=== PATIENT | female | born 1955 | race Caucasian/White ===

== ENCOUNTER → 2019-12-31 12:27 | Outpatient (CLI) | payer BC, SELFPAY ==
--- NOTE | ~2019-12-31 | MM_ITS ---
EXAMINATION: MM screening deja BI w balbir HISTORY: Screening mammogram TECHNIQUE: Craniocaudal and mediolateral oblique 3-D tomosynthesis images were obtained and synthetic 2-D images were generated. CAD analysis was submitted and interpreted. COMPARISON: Comparison to multiple prior studies sequentially, with oldest reviewed study dated 09/02. BREAST PARENCHYMAL COMPOSITION: The breasts are extremely dense, which lowers the sensitivity of mamm ography. FINDINGS: There is no evidence of suspicious mass, calcification, or architectural distortion to sugg est malignancy in either breast. There has been no suspicious interval change. IMPRESSION: 1. No mammographic evidence of malignancy. 2. Recommend routine screening mammography in one year. BI-RADS Category 1: Negative Reviewed, dictated and finalized at location A.
== END ==
PROVIDERS: Visit Provider Family Medicine Adolescent Medicine
DX: Z12.31 Encounter for screening mammogram for malignant neoplasm of breast (principal)
CPT/HCPCS: 77063; 77067

== ENCOUNTER → 2021-01-14 12:27 | Outpatient (CLI) | payer BC, SELFPAY ==
--- NOTE | ~2021-01-14 | MM_ITS ---
EXAMINATION: MM screening deja BI w balbir HISTORY: Screening TECHNIQUE: Craniocaudal and mediolateral oblique 3-D tomosynthesis images were obtained and synthetic 2-D images were generated. CAD analysis was submitted and interpreted. COMPARISON: Comparison to multiple prior studies sequentially, with oldest reviewed study dated 12/2014. BREAST PARENCHYMAL COMPOSITION: The breasts are extremely dense, which lowers the sensitivity of mamm ography. FINDINGS: There is no evidence of suspicious mass, calcification, or architectural distortion to sugg est malignancy in either breast. There has been no suspicious interval change. IMPRESSION: 1. No mammographic evidence of malignancy. 2. Recommend routine screening mammography in one year. BI-RADS Category 1: Negative Reviewed, dictated and finalized at location A.
== END ==
PROVIDERS: PCP Family Medicine Adolescent Medicine; Visit Provider Obstetrics & Gynecology
DX: Z12.31 Encounter for screening mammogram for malignant neoplasm of breast (principal)
CPT/HCPCS: 77063; 77067

== ENCOUNTER → 2022-03-29 11:02 | Outpatient (CLI) | payer OTHER, SELFPAY ==
--- NOTE | ~2022-03-29 | MM_ITS ---
EXAMINATION: MM screening deja BI w balbir HISTORY: Screening TECHNIQUE: Craniocaudal and mediolateral oblique 3-D tomosynthesis images were obtained and synthetic 2-D images were generated. CAD analysis was submitted and interpreted. COMPARISON: Comparison to multiple prior studies sequentially, with oldest reviewed study dated 09/24. BREAST PARENCHYMAL COMPOSITION: The breasts are extremely dense, which lowers the sensitivity of mamm ography. FINDINGS: There is no evidence of suspicious mass, calcification, or architectural distortion to sugg est malignancy in either breast. There has been no suspicious interval change. IMPRESSION: 1. No mammographic evidence of malignancy. 2. Recommend routine screening mammography in one year. BI-RADS Category 1: Negative Reviewed, dictated and finalized at location A.
== END ==
PROVIDERS: PCP Family Medicine Adolescent Medicine; Visit Provider Obstetrics & Gynecology
DX: Z12.31 Encounter for screening mammogram for malignant neoplasm of breast (principal)
CPT/HCPCS: 77063; 77067

== ENCOUNTER 2022-08-31 00:12 | Day surgery (SDC) | payer OTHER, SELFPAY ==
[2022-08-17 14:01] VITALS: BMI 20.7
[2022-08-31 06:45] VITALS: BP 133/77; PULSE 103; RESP 18; TEMP 36.7; O2SAT 99; BMI 20.5
[2022-08-31] MEDS: LACTATED RINGERS 1,000 ML 150 ML IV CONT (07:04)
--- NOTE | 2022-08-31 07:44 | WPDANESEPPF ---
Anes - Initial Pre Proc Eval Procedure: Operation Date: 08/31/22 08:00 Proposed Procedures p Screening Colonoscopy - Xu Blanchard MD Date/Time: 08/31/22 07:44 Surgeon: Xu Blanchard MD Pre Op Diagnosis: neoplasm screening Patient Data Age: 66 Gender: F Height: 1.6 m Weight: 52.6 kg Last Vital Signs Temp 98.1 F 08/31/22 06:45 Pulse 103 H 08/31/22 06:45 Resp 18 08/31/22 06:45 BP 133/77 08/31/22 06:45 Pulse Ox 99 08/31/22 06:45 O2 Del Method Room Air 08/31/22 06:45 Allergies Allergy/AdvReac Type Severity Reaction Status Date / Time No Known Allergies Allergy Verified 08/31/22 06:53 Home Medications Medication Instructions Recorded Confirmed Type cholecalciferol (vitamin D3) 125 125 mcg PO DAILY 07/15/22 08/31/22 History mcg (5,000 unit) capsule estradiol 0.0375 mg/24 hr 1 patch transdermal 2XW 07/15/22 08/31/22 History semiweekly transdermal patch nitrofurantoin macrocrystal 25 mg 50 mg PO .PRN 07/15/22 08/31/22 History capsule trazodone 50 mg tablet 50 mg PO QHS PRN sleep #30 tabs 07/15/22 08/31/22 Rx vit 1 cap PO DAILY 07/15/22 08/31/22 History C,E,zinc,Qv-ledah-6-lutein-zeaxanthin 250 mg-2.5 mg-0.5 mg capsule Patient hx anesthesia problems: none Family hx anesthesia problems: none Results Review: All pre-operative results and documents have been reviewed as part of the pre-operative evaluation. [facility] Surgical History Surgical History (Updated 07/14/22 @ 06:17 by Danis Paris MD) History of hysterectomy with bilateral oophorectomy (2003) Family History Family History (Updated 11/27/17 @ 13:31 by DOCTOR UNKNOWN) Mother Family history of osteoporosis Social History Social History Smoking status: Never smoker Alcohol intake: current Drinks per week: 2 Substance use type: does not use Living arrangements: with family Spiritual care concerns: No Anes - Eval Final PreProcedure Day of Procedure 08/31/22 07:44 Patient weight: normal Heart: regular rate and rhythm Lungs: clear to auscultation Airway: Mallampati scale class II Neurological: alert and oriented Last oral intake: >/= 8 hours ASA classification: I Emergent: no Anesthetic plan: proceed Anesthesia type and monitoring: general GIVS and standard monitoring Results Review: All pre-operative results and documents have been reviewed as part of the pre-operative evaluation. Informed Consent: The patient's anesthetic plan and its attendant risks and benefits were discussed with the patient/family/POA. Questions were solicited and answers provided to the satisfaction of the patient/family/POA.
--- NOTE | 2022-08-31 07:59 | PM.HPGS ---
History of Present Illness History of Present Illness Consent: Risks, benefits, and alternatives have been discussed and questions answered. Patient agrees to proceed with procedure. Chief complaint: neoplasm screening Narrative: Betzaida Sheppard is a 66 year old female here for colonoscopy, last one in 2012 Review of Systems Constitutional: Constitutional: Denies headache(s) and Denies weakness Eyes: Eyes: Denies blurry vision ENT: Reports Normal hearing present, Denies headache(s) and Denies neck pain Cardiovascular: Cardiovascular: Denies chest pain and Denies dyspnea Respiratory: Respiratory: Denies dyspnea Gastrointestinal: Gastrointestinal: Reports no additional gastrointestinal complaints Genitourinary: Genitourinary: Denies dysuria Musculoskeletal: Musculoskeletal: Denies neck pain Integumentary/Breasts: Skin/Breast: Denies dry skin Neurologic: Reports Normal hearing present, Denies headache(s) and Denies weakness Psychiatric: Psychiatric: Denies anxiety Endocrine: Endocrine: Denies change in body appearance Hematologic/Lymphatic: Hematologic/Lymphatic: Denies easy bleeding Allergic/Immunologic: Allergic/Immunologic: Denies urticaria PMFSH Past Medical History Medical History (Updated 08/31/22 @ 07:59 by Xu Blanchard MD) Colon cancer screening Surgical History Surgical History (Updated 07/14/22 @ 06:17 by Danis Paris MD) History of hysterectomy with bilateral oophorectomy (2003) Family History Family History (Updated 11/27/17 @ 13:31 by DOCTOR UNKNOWN) Mother Family history of osteoporosis Social History Social History Smoking status: Never smoker Alcohol intake: current Drinks per week: 2 Substance use type: does not use Living arrangements: with family Spiritual care concerns: No Meds Home Medications and Allergies Home Medications Medication Instructions Recorded Confirmed Type cholecalciferol (vitamin D3) 125 125 mcg PO DAILY 07/15/22 08/31/22 History mcg (5,000 unit) capsule estradiol 0.0375 mg/24 hr 1 patch transdermal 2XW 07/15/22 08/31/22 History semiweekly transdermal patch nitrofurantoin macrocrystal 25 mg 50 mg PO .PRN 07/15/22 08/31/22 History capsule trazodone 50 mg tablet 50 mg PO QHS PRN sleep #30 tabs 07/15/22 08/31/22 Rx vit 1 cap PO DAILY 07/15/22 08/31/22 History C,E,zinc,Dr-olter-0-lutein-zeaxanthin 250 mg-2.5 mg-0.5 mg capsule Allergies Allergy/AdvReac Type Severity Reaction Status Date / Time No Known Allergies Allergy Verified 08/31/22 06:53 Vital Signs Vital Signs - 24 hr 08/31/22 06:45 Temperature 98.1 F Pulse Rate 103 H Respiratory Rate 18 Blood Pressure 133/77 Pulse Oximetry 99 Oxygen Delivery Room Air Exam Const: General: comfortable and no acute distress HENMT: Face/Nose/Sinus: Normal nares present Eyes: General: appearance normal, both eyes and all related structures Neck: Neck: no JVD Resp: Auscultation: clear to auscultation bilaterally Cardio: Rate: regular rate Rhythm: regular rhythm GI: Inspection: non-distended GI Palp: Yes Soft to palpation Skin: General skin exam: normal color Neuro: General: gait normal Speech: normal speech Extrem: General: normal to inspection Psych: Mental Status: mental status grossly normal Assessment and Plan Assessment and plan (1) Colon cancer screening: Code(s): Z12.11 - Encounter for screening for malignant neoplasm of colon Status: Acute Assessment and Plan: colonoscopy
[2022-08-31 08:28] VITALS: BP 110/63; PULSE 80; RESP 16; O2SAT 99
[2022-08-31 08:38] VITALS: BP 112/68; PULSE 76; RESP 24; O2SAT 100
[2022-08-31 08:48] VITALS: BP 113/72; PULSE 77; RESP 16; O2SAT 100
== END 2022-08-31 08:53 | disposition home or self-care (01) ==
PROVIDERS: PCP Family Medicine Adolescent Medicine; Visit Provider Internal Medicine Gastroenterology
PROC: 0DJD8ZZ Inspection of Lower Intestinal Tract, Via Natural or Artificial Opening Endoscopic (ICD-10-PCS; CPT 45378; principal; 2022-08-31 08:00)
DX: Z12.11 Encounter for screening for malignant neoplasm of colon (principal); D12.2 Benign neoplasm of ascending colon; D12.4 Benign neoplasm of descending colon; K57.30 Diverticulosis of large intestine without perforation or abscess without bleeding; K64.8 Other hemorrhoids
CPT/HCPCS: 45385; 88305; J2704; J7120

== ENCOUNTER → 2023-06-14 13:27 | Outpatient (CLI) | payer OTHER, SELFPAY ==
--- NOTE | ~2023-06-14 | MM_ITS ---
EXAMINATION: MM screening [facility] BI w balbir HISTORY: Screening mammogram TECHNIQUE: Craniocaudal and mediolateral oblique 3-D tomosynthesis images were obtained and synthetic 2-D images were generated. CAD analysis was submitted and interpreted. COMPARISON: 03/29/2022, 01/14/2021, 12/31/2019 BREAST PARENCHYMAL COMPOSITION: The breasts are heterogeneously dense, which may obscure small masses . FINDINGS: No suspicious mass, calcification, or architectural distortion are identified in either tatyana ast to suggest malignancy. There has been no suspicious interval change. IMPRESSION: 1. No mammographic evidence of malignancy. 2. Recommend routine screening mammography in one year. BI-RADS Category 1: Negative Reviewed, dictated and finalized at location A. LAB TECHNICIAN
== END ==
PROVIDERS: PCP Family Medicine Adolescent Medicine; Visit Provider Obstetrics & Gynecology
DX: Z12.31 Encounter for screening mammogram for malignant neoplasm of breast (principal)
CPT/HCPCS: 77063; 77067

== ENCOUNTER 2024-06-17 13:13 | Outpatient (CLI) | payer OTHER, SELFPAY ==
--- NOTE | ~2024-06-17 | MM_ITS ---
EXAMINATION: MM screening deja BI w balbir HISTORY: Screening TECHNIQUE: Craniocaudal and mediolateral oblique 3-D tomosynthesis images were obtained and synthetic 2-D images were generated. CAD analysis was submitted and interpreted. COMPARISON: Comparison to multiple prior studies sequentially, with oldest reviewed study dated 10/24. BREAST PARENCHYMAL COMPOSITION: Dense: The breasts are heterogeneously dense, which may obscure small masses FINDINGS: There is no evidence of suspicious mass, calcification, or architectural distortion to sugg est malignancy in either breast. There has been no suspicious interval change. IMPRESSION: 1. No mammographic evidence of malignancy. 2. Recommend routine screening mammography in one year. BI-RADS Category 1: Negative Reviewed, dictated and finalized at location B. LE VALVE OPERATOR
== END 2024-06-17 13:14 | disposition home or self-care (01) ==
PROVIDERS: PCP Family Medicine Adolescent Medicine; Visit Provider Obstetrics & Gynecology
DX: Z12.31 Encounter for screening mammogram for malignant neoplasm of breast (principal)
CPT/HCPCS: 77063; 77067

== ENCOUNTER 2024-09-09 00:35 | Day surgery (SDC) | payer OTHER, SELFPAY ==
[2024-08-28 14:55] VITALS: BMI 21.4
--- OUTSIDE RECORDS SUMMARY | 2024-09-09 00:37 | XMS_ITS | Encounter Summary ---
Author Organization [facility] Address [address] [place] [address] Care Team Providers Care Flying Teacher Name Role Phone Danis Paris MD Primary Care Provider [phone]- [phone] Encounter Details Date Type Department Care Team (Late st Contact Info) Description 07/04/2003 Outpatient Historical [facility] Support Serv. (Adt Cardiology-[facility]) [address] 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 Gender Identity Not on file Sexual Orientation Not on file documented as of this encounter Plan of Treatment Upcoming Encounters Date Type Department Care Team (Late st Contact Info) Description 01/21/2025 10:15 AM CDT Office Visit [facility] ELECTRICIAN TECHNICIAN - Medical [facility] [address] [place] [address] Joseph Stein MD [address] [facility] [address] [place] [address] 01/21/2025 11:20 AM CDT Appointment [facility] [address] [place] [address] Gabriel Sexton MD [address] [facility] [address] [address] documented as of this encounter Visit Diagnoses Not on filedocumented in this encounter Care Teams Flying Teacher Relationship Specialty Start Date End Date Danis Paris MD PCP - General Family Practice 07/22/19 documented as of this encounter
--- OUTSIDE RECORDS SUMMARY | 2024-09-09 00:37 | XMS_ITS | Encounter Summary ---
Author Organization [facility] Address [address] [address] Care Team Providers Care Button Clamper Name Role Phone Danis Paris MD Primary Care Provider + Encounter Details Date Type Department Care Team (Late st Contact Info) Description 12/06/2017 Lab Requisition [facility] [address] [facility] [place] [phone] Jett Zamudio MD [address] [place] [address] Social History Tobacco Use Types Packs/Day Years Used Date Smoking Tobacco: Never Assessed Sex and Gender Information Value Date Recorded Sex Assigned at Not on file Gender Identity Not on file Sexual Orientation Not on file documented as of this encounter Plan of Treatment Not on file documented as of this encounter Procedures Procedure Name Priority Date/Time Associated Diagnosis Comments DERMATOPATHOLOGY Routine 12/05/2017 12:0 0 AM CDT documented in this encounter Results * DERMATOPATHOLOGY (12/05/2017 12:00 AM CDT) Case Report Dermatopathology Report Case: [id number] Authorizing Provider: Jett Zamudio MD Collected: 12/05/2017 12:00 AM Pathologist: Belinda Armstrong MD Received: 12/06/2017 12:11 PM Specimen: Skin, left nasal tip 8 4:27 PM CDT DERMATOPATHOLOGY LABORATORY Final Diagnosis Specimen A. 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 8 4:27 PM CDT DERMATOPATHOLOGY LABORATORY Gross Description Specimen A: Received is one formalin filled container labeled with the patient's name and designated left nasal tip. The specimen consists of a shave biopsy measuring [id number]. Jar 0. 4:27 PM CDT DERMATOPATHOLOGY LABORATORY Microscopic Description Specimen A. SKIN, left nasal tip: The epidermis shows parakeratosis, full thickness disorderly maturation of keratinocytes, mitoses at different levels, and dyskeratotic cells. Additional deeper sections were obtained and reviewed. 4:27 PM T DERMATOPATHOLOGY LABORATORY Disclaimer An external and internal positive and negative controls are appropriate for the histochemical, immunohistochemical and immunofluorescence stain(s) in this case (if any), except where stated explicitly. The performance characteristics of the stain(s) cited in this report were developed and its performance characteristic determined by the Dermatopathology Laboratory at [facility]. These tests need not be, and therefore are not, approved by the [place] Food and Drug Administration. The tests are used for clinical purposes. Billing Codes Specimen Charges Stain Charges 57683 1 8 4:27 PM CDT DERMATOPATHOLOGY LABORATORY Embedded Images 4:27 PM CDT DERMATOPATHOLOGY LABORATORY Pathology/Cytolog y TISSUE SPECIMEN FROM SKIN / Unknown 12/05/2017 12/06/2017 12:11 PM CDT Jett Zamudio MD LAB - PATHOLOGY/CYTO LOGY ORDERABLES DERMATOPATHOLOGY LABORATORY [facility] - Department of Dermatology [address] [place] [address], 5th [place] [address], [facility] [phone] documented in this encounter Visit Diagnoses Not on filedocumented in this encounter Care Teams Button Clamper Relationship Specialty Start Date End Date Danis Paris MD [address] [address] PCP - General 09/23/22 documented as of this encounter
--- OUTSIDE RECORDS SUMMARY | 2024-09-09 00:37 | XMS_ITS | Encounter Summary ---
Author Organization [facility] Address 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 Gender Identity Not on file Sexual Orientation Not on file documented as of this encounter Plan of Treatment Upcoming Encounters Date Type Department Care Team (Late st Contact Info) Description 01/21/2025 10:15 AM CDT Office Visit [facility] DIRECTOR OF DIVERSITY AND INCLUSION - Medical [address] [address] Joseph Stein MD [address] [address] 01/21/2025 11:20 AM CDT Appointment [facility] [address] [place] [address] Gabriel Sexton MD [address] [address] documented as of this encounter Visit Diagnoses Diagnosis Leiomyoma of uterus, unspecified- Primary documented in this encounter Care Teams Cook Roast Relationship Specialty Start Date End Date Danis Paris MD PCP - General Family Practice 07/22/19 documented as of this encounter
--- OUTSIDE RECORDS SUMMARY | 2024-09-09 00:37 | XMS_ITS | Encounter Summary ---
Author Organization [facility] Address [address] [facility] [place] [address] Care Team Providers Care Industrial Maintenance Technician Name Role Phone Danis Paris MD Primary Care Provider + Encounter Details Date Type Department Care Team (Late st Contact Info) Description 02/19/2020 Lab Requisition [facility] D[facility] Lab [address] [place] [phone] Jett Zamudio MD [address] [place] [address] Social History Tobacco Use Types [...] Priority Date/Time Associated Diagnosis Comments DERMATOPATHOLOGY Routine 02/18/2020 12:0 0 AM CDT documented in this encounter Results * DERMATOPATHOLOGY (02/18/2020 12:00 AM CDT) Case Report Dermatopathology Report Case: [id number] Authorizing Provider: Jett Zamudio MD Collected: 02/18/2020 12:00 AM Ordering Location: [facility] Received: 02/19/2020 12:29 PM Pathologist: Brook Mahoney MD Specimens: A) - Skin, right ala B) - Skin, right above patella on thigh 0 3:31 PM CDT DERMATOPATHOLOGY LABORATORY Final Diagnosis Specimen A. SKIN, right ala: BASAL CELL CARCINOMA, NODULAR TYPE (C44.311) Specimen B. SKIN, right above patella on thigh: BENIGN VERRUCOUS KERATOSIS (L82.1) (see microscopic description) 0 3:31 PM CDT DERMATOPATHOLOGY LABORATORY Clinical History A: R/O BCC. B: R/O BCC, ISK. 0 3:31 PM CDT DERMATOPATHOLOGY LABORATORY Gross Description Specimen A: Received is one formalin filled container labeled with the patient's name and designated right ala. The specimen consists of a shave biopsy measuring [id number]. Jar 0. Specimen B: Received is one formalin filled container labeled with the patient's name and designated right above patella on thigh. The specimen consists of a shave biopsy measuring [id number]. Jar 0. 0 3:31 PM CDT DERMATOPATHOLOGY LABORATORY Microscopic Description Specimen A. SKIN, right ala: Within the dermis there are aggregates of basaloid cells with a high nuclear to cytoplasmic ratio and peripheral palisading. Specimen B. SKIN, right above patella on thigh: Sections show hyperkeratosis, papillomatosis, hypergranulosis, and acanthosis. These histological findings can be seen in a verruca vulgaris or a seborrheic keratosis. There is no evidence of epithelial dysplasia or malignancy in multiple deeper sections examined. 0 3:31 PM CDT DERMATOPATHOLOGY LABORATORY Disclaimer An external and internal positive and negative controls are appropriate for the histochemical, immunohistochemical and immunofluorescence stain(s) in this case (if any), except where stated explicitly. The performance characteristics of the stain(s) cited in this report were developed and its performance characteristic determined by the Dermatopathology Laboratory at [facility], directed by Dr. Eloy Armstrong. These tests need not be, and therefore are not, approved by the [place] Food and Drug Administration. The tests are used for clinical purposes. Billing Codes Specimen Charges Stain Charges 29927 23675 1 1 0 3:31 PM CDT DERMATOPATHOLOGY LABORATORY Embedded Images 0 3:31 PM CDT DERMATOPATHOLOGY LABORATORY Pathology/Cytology TISSUE SPECIMEN FROM SKIN / Unknown 02/18/2020 02/19/2020 12:29 PM CDT Miscellaneous samples (specimen) TISSUE SPECIMEN FROM SKIN / Unknown 02/18/2020 02/19/2020 12:29 PM CDT Jett Zamudio MD LAB - PATHOLOGY/CYTO LOGY ORDERABLES DERMATOPATHOLOGY LABORATORY [facility] - Department of Dermatology [facility] Medicine [address] [place] [address], [address] [phone] documented in this encounter Visit Diagnoses Not on filedocumented in this encounter Care Teams Industrial Maintenance Technician Relationship Specialty Start Date End Date Danis Paris MD [address] [address] PCP - General 09/23/22 documented as of this encounter
--- OUTSIDE RECORDS SUMMARY | 2024-09-09 00:37 | XMS_ITS | Encounter Summary ---
Author Organization [facility] Address [address] [place] [address] Care Team Providers Care Pumping Plant Operator Name Role Phone Danis Paris MD Primary Care Provider + Encounter Details Date Type Department Care Team (Late st Contact Info) Description 05/19/2021 Lab Requisition [facility] [address] [place] [id number] Jett Zamudio MD [address] [place] [address] Social History Tobacco Use Types [...] Priority Date/Time Associated Diagnosis Comments DERMATOPATHOLOGY Routine 05/18/2021 12:0 0 AM MANIPULATOR OPERATOR documented in this encounter Results * DERMATOPATHOLOGY (05/18/2021 12:00 AM MANIPULATOR OPERATOR) Case Report Dermatopathology Report Case: [id number] Authorizing Provider: Jett Zamudio MD Collected: 05/18/2021 12:00 AM Ordering Location: [facility] Received: 05/19/2021 01:50 PM Pathologist: Brook Mahoney MD Specimen: Skin, right tip nose 5:28 PM MANIPULATOR OPERATOR DERMATOPATHOLOGY LABORATORY Final Diagnosis Specimen A. SKIN, right tip nose: SEBORRHEIC KERATOSIS, IRRITATED AND INFLAMED (L82.0) COMEDONE (L70.8) 5:28 PM [facility] DERMAT[facility]ORAT[facility] Clinical History R/O BCC. 5:28 PM [facility] Gross Description Specimen A: Received is one formalin filled container labeled with the patient's name and designated right tip nose. The specimen consists of a shave biopsy measuring [id number]. Jar 0. 5:28 PM [facility] DERMATOPATHOLOGY [facility]ORATORY Microscopic Description Specimen A. SKIN, right tip nose: Sections show acanthosis, papillomatosis, hyperkeratosis, and squamous eddies. There is a lymphohistiocytic infiltrate within the papillary dermis. There is a dilated follicular infundibulum with keratinous plug. 5:28 PM [facility] DERMATOPATHOLOGY [facility]ORATORY Disclaimer An external and internal positive and negative controls are appropriate for the histochemical, immunohistochemical and immunofluorescence stain(s) in this case (if any), except where stated explicitly. The performance characteristics of the stain(s) cited in this report were developed and its performance characteristic determined by the Dermatopathology Laboratory at [facility], directed by Dr. Eloy Armstrong. These tests need not be, and therefore are not, approved by the [place] Food and Drug Administration. The tests are used for clinical purposes. Billing Codes Specimen Charges Stain Charges 59869 1 5:28 PM MANIPULATOR OPERATOR DERMATOPATHOLOGY LABORATORY Embedded Images 5:28 PM [facility] DERMAT[facility]ORY Pathology/Cytolog y TISSUE SPECIMEN FROM SKIN / Unknown 05/18/2021 05/19/2021 1:50 PM MANIPULATOR OPERATOR Jett Zamudio MD LAB - PATHOLOGY/CYTO LOGY ORDERABLES DERMATOPATHOLOGY LABORATORY [facility] - Department of Dermatology [address], [address] [phone] documented in this encounter Visit Diagnoses Not on filedocumented in this encounter Care Teams Pumping Plant Operator Relationship Specialty Start Date End Date Danis Paris MD [address] [place] [id number] PCP - General 09/23/22 documented as of this encounter
--- OUTSIDE RECORDS SUMMARY | 2024-09-09 00:37 | XMS_ITS | Clinical Summary ---
Author Organization [facility] Address [address] [place] [address] Care Team Providers Care Statuary Painter Name Role Phone Danis Paris MD Primary Care Provider + Source Comments [facility],non-owned Affiliates and Associated Physician Practices is amultiple site organization consisting of ambulatory clinics and hospital sitesin [place], [place], [place] and [place]. This disclosure is being madepursuant to the Care Everywhere program and may not contain all information available regarding this patient. Last updated 18.[facility] Social History Tobacco Use Types Packs/Day Years Used Date Smoking Tobacco: Never Assessed Sex and Gender Information Value Date Recorded Sex Assigned at Not on file Gender Identity Not on file Sexual Orientation Not on file Plan of Treatment Health Maintenance Due Date Last Done Comments BONE DENSITY TESTING 1955 COLOGUARD (AGES 45-75) - COL ON CA SCREENING 1956 COLON MONITORING 1956 COLONOSCOPY - COLON CA SCREENING 1956 CT COLONOGRAPHY - COLON CA SCREENING 1956 Colorectal Cancer Screening 1956 FIT - COLON CA SCREENING 1956 FLEX SIG - COLON CA SCREENING 1956 LIPID TESTING 1956 MAMMOGRAM 1956 MEDICARE AWV 12 MONTHS 1956 HEPATITIS C SCREENING 12/08/1974 DTAP/TDAP/TD VACCINES (1 - Tdap) 12/13/1975 PNEUMOCOCCAL VACCINE 50+ (1 of 1 - PCV) 2006 ZOSTER VACCINE (1 of 2) 2006 COVID-19 VACCINE (1 - 2023-2 5 season) 2024 INFLUENZA VACCINE (#1) 2024 DEPRESSION SCREENING 06/12/2024 MEDICARE AWV CALENDAR YEAR 2024 Respiratory Syncytial Virus (RSV) Vaccine Pt: or over 60 yrs (1 - 1-dose 75+ series) 12/13/2031 HEPATITIS B VACCINE Aged Out No longe r eligible based on patient's age to complete this topic HIB VACCINE Aged Out No longer eligi ble based on patient's age to complete this topic HPV VACCINE Aged Out No longer eligi ble based on patient's age to complete this topic MENINGOCOCCAL (Group B) VACC INE SHARED DECISION-MAKING Aged Out No longer eligibl e based on patient's age to complete this topic MENINGOCOCCAL GROUPS A/C/Y/W VACCINE Aged Out No longer eligible b ased on patient's age to complete this topic Care Teams Statuary Painter Relationship Specialty Start Date End Date Danis Paris MD [address] [place] [id number] PCP - General 09/23/22
--- OUTSIDE RECORDS SUMMARY | 2024-09-09 00:38 | XMS_ITS | Clinical Summary ---
Author Organization [facility] Address [address] [place] [address] Phone Care Team Providers Care Asbestos Siding Installer Name Role Phone Danis Paris MD Primary Care Provider [phone] Allergies No known active allergies Medications Denta 5000 Plus 1.1 % Cream USE TOOTHPASTE AT BEDTIME. EXPECTORATE EXCESS BUT DO NOT RINSE AFTER USE 0 Active trazodone HCl (TRAZODONE ORAL) Take by mouth. Active estradioL (VIVELLE-DOT) 0.0375 mg/24 hr patch Change patch twice weekly. 24 Patch 3 4 Active nitrofurantoin macrocrystaL (MACRODANTIN) 50 mg capsule TAKE 1 CAPSULE BY MOUTH AFTER INTERCOURSE NEEDED 30 Capsule 3 4 Active alendronate (FOSAMAX) 70 mg tablet Take 1 Tablet (70 mg) by mouth every 7 days. empty stomach before other meds,with 8oz of water, stay upright 30 min 13 Tablet 3 4 Active LORazepam (ATIVAN) 1 mg tablet take 1 tablet by mouth every day at bedtime as needed for sleep 5 Active Active Problems Problem Noted Date Diagnosed Date Age-related osteoporosis wit hout current pathological fracture 07/23/2024 Encounters Date Type Department Care Team Description 08/28/2024 External Device Data STL ABSTRACTION Provider, Abstract 08/21/2024 External Device Data [facility] ABSTRACTION Provider, Abstract 08/20/2024 External Device Data [facility] ABSTRACTION Provider, Abstract 08/17/2024 External Device Data [facility] ABSTRACTION Provider, Abstract 08/17/2024 External Device Data ST[facility] ABSTRACTION Provider, Abstract 08/14/2024 External Device Data ST[facility] ABSTRACTION Provider, Abstract 08/14/2024 External Device Data ST[facility] ABSTRACTION Provider, Abstract 07/31/2024 External Device Data STL ABSTRACTION Provider, Abstract 07/23/2024 10:30 AM CRIME LAB ANALYST Office Visit [facility] CONTROL CLERK REPAIRS - [facility] [address] [address] Gabriel Sexton MD Age-related osteoporosis without current pathological fracture (Primary Dx) 07/04/2024 External Device Data STL ABSTRACTION Provider, Abstract 06/25/2024 External Device Data STL ABSTRACTION Provider, Abstract 06/18/[address] [facility] CONTROL CLERK REPAIRS [facility] [address] [place], [place] [address] [address] [address] Gabriel Sexton MD Breast cancer screening by mammogram from Last 3 Months Immunizations Immunization Administration Dates Next Due Influenza Seasonal Unspecified Formulation IM Family History Medical History Relation Name Comments Cancer Brother 1 Mikal Skin Hypertension Brother 1 Mikal Prostate Cancer Brother 1 Mikal Hypertension Brother 2 Brian maker brittney susan Hypertension Father Panchito Osteoporosis Mother Kristen Arthritis-osteo Other Family Hx. Diabetes Other Family Hx. Hypertension Other Family Hx. Osteoporosis Other Family Hx. Skin Cancer Other Family Hx. Cancer Sister 1 Maria Alejandra Skin Cancer Sister 2 Myra Skin Relation Name Status Comments Brother 1 Mikal Brother 2 Brian Father Panchito Mother Kristen Other Family Hx. Sister 1 Maria Alejandra Sister 2 Myra Social History Tobacco Use Types Packs/Day Years Used Date Smoking Tobacco: Never Passive Smoke Exposure: Never Smokeless Tobacco: Never Alcohol Use Standard Drinks/Week Comments Yes 4 (1 standard drink = 0.6 oz pur e alcohol) 3-4 x week Comments No Sex and Gender Information Value Date Recorded Sex Assigned at Not on file Legal Sex Female 3:08 AM CRIME LAB ANALYST Gender Identity Not on file Sexual Orientation Not on file Last Filed Vital Signs Vital Sign Reading Time Taken Comments Blood Pressure 126/80 07/23/2024 10:06 AM CRIME LAB ANALYST Pulse - - Temperature - - Respiratory Rate - - Oxygen Saturation - - Inhaled Oxygen Concentration - - Weight 56.2 kg (124 lb) 07/23/2024 10:06 AM CRIME LAB ANALYST Height 159.4 cm (5' 2.75 ) 07/23/2024 10:06 AM Juan C DAVIDSON Body Mass Index 22.14 07/23/2024 10:06 AM CRIME LAB ANALYST Plan of Treatment Upcoming Encounters Date Type Department Care Team (Late st Contact Info) Description 01/21/2025 10:15 AM CDT Office Visit [facility] CONTROL CLERK REPAIRS - [facility] [place] [facility] [address] [address] Joseph Stein MD [address] [place] [address] [place] [phone] 01/21/2025 11:20 AM CDT Appointment [facility] [address] [place] [phone] Gabriel Sexton MD [address] [place], [place] [address] [place] [address] Health Maintenance Due Date Last Done Comments DTAP/TDAP/TD VACCINES (1 - Tdap) 12/13/1975 COLORECTAL SCREENING 2001 FIT-DNA Q 3 years 2001 Flex Sig/CT Colonography Q 5 years 2001 PNEUMOCOCCAL VACCINE 50+ YEA RS (1 of 1 - PCV) 2006 ZOSTER VACCINE (1 of 2) 2006 Colorectal Cancer Screening 11/25/2020 FIT/FOBT Q 1 year 11/25/2020 11/26/2019 [place] ([place] Preventative Visit/Annual Wellness Visit 06/12/2024 01/19/2024, 01/12/2023, 01/04/2022, Additional history exists BREAST CANCER SCREENING 06/17/2025 06/17/19 25, 06/14/2023, 03/29/2022, Additional history exists RSV VACCINE (60+ or ) (1 - 1-dose 75+ series) 12/13/2031 OSTEOPOROSIS SCREENING Completed 4, 01/04/2022, 11/26/2019 INFLUENZA VACCINE Completed 05/12/2024 Procedures Procedure Name Priority Date/Time Associated Diagnosis Comments MAMMO 3D JUANA SCREEN BILAT W OR WO CAD Routine 06/17/2024 Breast cancer screening by mammogram XR DEXA BONE DENSITY AXIAL 1 OR MORE SITES Routine 01/19/2024 11:23 AM CDT Other specified disorders of bone density and structure, other site POC OCCULT BLOOD, IMMUNO, QUAL, STOOL Routine 11/26/2019 1:56 PM CDT Screening for malignant neoplasm of the rectum from Last 3 Months or Most Recently Relevant to Health Maintenance Results * MAMMO 3D JUANA SCREEN BILAT W OR WO CAD (06/17/2024) Anatomical Region Laterality Modality Breast Bilateral Mammography us Gabriel Sexton MD MAMMO ORDERABLES Final Resul t * XR DEXA BONE DENSITY AXIAL 1 OR MORE SITES (01/19/2024 11:23 AM CDT) Anatomical Region Laterality Modality Computed Radiogr aphy Impressions 01/19/2024 11:48 AM CDT : Patient's worst T-score is -2.1. However, her FRAX calculation is positive with an increased risk for hip fracture. Recommend she have labs and a consult to discuss osteoporosis and its treatment. us Gabriel Sexton MD DIAGNOSTIC IMAGING ORDERABLE S Final Result * POC OCCULT BLOOD, IMMUNO, QUAL, STOOL (11/26/2019 1:56 PM CDT) OCCULT BLOOD, IMMUNOASSAY POC Negative Negative [facility] CONTROL CLERK REPAIRS [address] INTERNAL KIT QC Pass Pass [facility] CONTROL CLERK REPAIRS [address] KIT LOT NUMBER POC [id number] [facility] CONTROL CLERK REPAIRS [address] KIT EXPIRATION DATE POC 111,121 [facility] CONTROL CLERK REPAIRS [address] Stool STOOL SPECIMEN / Unknown 11/26/2019 1:56 PM CDT us Gabriel Sexton MD POINT OF CARE TESTING Final Result [facility] CONTR[facility] CLERK REPAIRS GU[address]LE [address] [facility]# [id number] [address] [facility] [address] [place] [address] from Last 3 Months or Most Recently Relevant to Health Maintenance Insurance [facility] [place] Address: [place] [address] Care Teams Asbestos Siding Installer Relationship Specialty Start Date End Date Danis Paris MD PCP - General Family Practice 07/22/19
--- OUTSIDE RECORDS SUMMARY | 2024-09-09 00:38 | XMS_ITS | Continuity of Care Document ---
Author Organization [facility] Address [address] [place] [address] [address] [address] [place] [address] Phone Care Team Providers Care Park Guard Name Role Phone Genny Robles Unavailable Unavailable Advance Directives Directive Yes / No Effective Date File Name No Information Encounters Encounter Description Practice Location Reason(s) For Visit Diagnoses Date Provider Providers Copied on Encounter [facility], [address], [place], [place], [id number], [place] tel:[phone] [facility] No Information Apr-0 8-200 5 Margaret Royal. [address] , [address], [place], [address], [place]. tel:[phone] Family History Family Member Type Diagnosis Age At Onset No Information Payers Payer name Insurance type Covered democrat ID Authoriza tion(s) [facility] Commercial CI [id number] Social History Type Description Quantity Date Captured Comments Sex Female Smoking Status No Information Chief Complaint And Reason For Visit No Information Reason For Referral Reason For Referral No Information History Of Present Illness Encounter Date Complaint History Of Prese nt Illness No Information Functional Status Date Functional Assessmen t No Information Instructions Date Instruction Additional Infor mation No Information Assessments Type Assessment Date No Information Patient Care Teams Name Effective Dates (start - stop) Status Members No Information
[2024-09-09 11:17] VITALS: BP 150/97; PULSE 93; RESP 20; TEMP 36.3; O2SAT 99; BMI 21.0
[2024-09-09] MEDS: LACTATED RINGERS 1,000 ML 150 ML IV CONT ×2 (11:25→13:18)
--- NOTE | 2024-09-09 11:34 | WPDANESEPPF ---
Anes - Initial Pre Proc Eval Procedure: Operation Date: 09/09/24 12:30 Proposed Procedures p Screening Colonoscopy - Xu Blanchard MD Date/Time: 09/09/24 11:34 Surgeon: Xu Blanchard MD Pre Op Diagnosis: personal hx colon polyps Patient Data Age: 68 Gender: F Height: 1.6 m Weight: 54 kg Last Vital Signs Temp 97.3 F L 09/09/24 11:17 Pulse 93 09/09/24 11:17 Resp 20 09/09/24 11:17 BP 150/97 H 09/09/24 11:17 Pulse Ox 99 09/09/24 11:17 O2 Del Method Room Air 09/09/24 11:17 Allergies Allergy/AdvReac Type Severity Reaction Status Date / Time No Known Allergies Allergy Verified 09/09/24 11:16 Home Medications ?Medication ?Instructions ?Recorded ?Confirmed ?Type cholecalciferol (vitamin D3) 125 125 mcg PO DAILY 07/15/22 09/09/24 History mcg (5,000 unit) capsule nitrofurantoin macrocrystal 25 mg 50 mg PO .PRN 07/15/22 08/28/24 History capsule triamcinolone acetonide 0.1 % 1 applic topical BID #80 grams 09/26/22 09/09/24 Rx topical cream lorazepam 1 mg tablet 1 mg PO QHS PRN sleep #30 tabs 03/25/24 08/28/24 Rx alendronate 70 mg tablet mg PO WEEKLY 08/28/24 History Patient hx anesthesia problems: none Family hx anesthesia problems: none Results Review: All pre-operative results and documents have been reviewed as part of the pre-operative evaluation. [facility] Past Medical History Medical History Colon cancer screening Surgical History Surgical History History of hysterectomy with bilateral oophorectomy (2003) Family History Family History Mother Family history of osteoporosis Social History Social History Smoking status: Never smoker Alcohol intake: current Drinks per week: 7 Substance use type: does not use Living arrangements: with family Spiritual care concerns: No Anes - Eval Final PreProcedure Day of Procedure 09/09/24 11:34 Patient weight: normal Lungs: normal air movement Airway: Mallampati scale class II Neurological: alert and oriented Last oral intake: >/= 8 hours ASA classification: I Emergent: no Anesthetic plan: proceed Anesthesia type and monitoring: general GIVS and standard monitoring Results Review: All pre-operative results and documents have been reviewed as part of the pre-operative evaluation. Active w walking, golf, no cp or sob. Informed Consent: The patient's anesthetic plan and its attendant risks and benefits were discussed with the patient/family/POA. Questions were solicited and answers provided to the satisfaction of the patient/family/POA.
--- NOTE | 2024-09-09 12:17 | PM.HPGS ---
History of Present Illness History of Present Illness Consent: Risks, benefits, and alternatives have been discussed and questions answered. Patient agrees to proceed with procedure. Chief complaint: personal hx colon polyps Narrative: Betzaida Sheppard is a 68 year old female with colon polyp in 2022 Review of Systems Review of Systems: All systems reviewed & are unremarkable except as noted in HPI and below PMFSH Past Medical History Medical History (Updated 09/09/24 @ 12:18 by Xu Blanchard MD) Adenomatous colon polyp Colon cancer screening Surgical History Surgical History History of hysterectomy with bilateral oophorectomy (2003) Family History Family History Mother Family history of osteoporosis Social History Social History Smoking status: Never smoker Alcohol intake: current Drinks per week: 7 Substance use type: does not use Living arrangements: with family Spiritual care concerns: No Meds Home Medications and Allergies Home Medications ?Medication ?Instructions ?Recorded ?Confirmed ?Type cholecalciferol (vitamin D3) 125 125 mcg PO DAILY 07/15/22 09/09/24 History mcg (5,000 unit) capsule nitrofurantoin macrocrystal 25 mg 50 mg PO .PRN 07/15/22 08/28/24 History capsule triamcinolone acetonide 0.1 % 1 applic topical BID #80 grams 09/26/22 09/09/24 Rx topical cream lorazepam 1 mg tablet 1 mg PO QHS PRN sleep #30 tabs 03/25/24 08/28/24 Rx alendronate 70 mg tablet mg PO WEEKLY 08/28/24 History Allergies Allergy/AdvReac Type Severity Reaction Status Date / Time No Known Allergies Allergy Verified 09/09/24 11:16 Vital Signs Vital Signs - 24 hr 09/09/24 11:17 Temperature 97.3 F L Pulse Rate 93 Respiratory Rate 20 Blood Pressure 150/97 H Pulse Oximetry 99 Oxygen Delivery Room Air Exam Const: General: comfortable and no acute distress HENMT: Face/Nose/Sinus: Normal nares present Eyes: General: appearance normal, both eyes and all related structures Neck: Neck: no JVD Resp: Auscultation: clear to auscultation bilaterally Cardio: Rate: regular rate Rhythm: regular rhythm GI: Inspection: non-distended GI Palp: Yes Soft to palpation Skin: General skin exam: normal color Neuro: Speech: normal speech Extrem: General: normal to inspection Psych: Mental Status: mental status grossly normal Assessment and Plan Assessment and plan (1) Adenomatous colon polyp: Code(s): D12.6 - Benign neoplasm of colon, unspecified Status: Acute Assessment and Plan: colonoscopy
[2024-09-09 13:23] VITALS: BP 107/63; PULSE 65; RESP 15; O2SAT 100
[2024-09-09 13:33] VITALS: BP 114/52; PULSE 65; RESP 17; O2SAT 100
[2024-09-09 13:43] VITALS: BP 105/67; PULSE 60; RESP 15; O2SAT 100
== END 2024-09-09 14:10 | disposition home or self-care (01) ==
PROVIDERS: PCP Family Medicine Adolescent Medicine; Referring Provider Family Medicine Adolescent Medicine; Visit Provider Internal Medicine Gastroenterology
PROC: 0DJD8ZZ Inspection of Lower Intestinal Tract, Via Natural or Artificial Opening Endoscopic (ICD-10-PCS; CPT 45378; principal; 2024-09-09 12:30)
DX: Z12.11 Encounter for screening for malignant neoplasm of colon (principal); D12.4 Benign neoplasm of descending colon; K63.5 Polyp of colon; K64.8 Other hemorrhoids; Z79.83 Long term (current) use of bisphosphonates; Z98.890 Other specified postprocedural states
CPT/HCPCS: 45390; 88305; J2003; J2704; J7120

== ENCOUNTER 2025-03-17 00:11 | Day surgery (SDC) | payer OTHER, SELFPAY ==
[2025-03-03 12:48] VITALS: BMI 21.9
[2025-03-17 06:57] VITALS: BP 133/76; PULSE 85; RESP 20; TEMP 36.6; O2SAT 98; BMI 21.0
[2025-03-17] MEDS: LACTATED RINGERS 1,000 ML 150 ML IV CONT (07:05)
--- NOTE | 2025-03-17 07:27 | WPDANESEPPF ---
Anes - Initial Pre Proc Eval Procedure: Operation Date: 03/17/25 08:00 Proposed Procedures p Screening Colonoscopy - Xu Blanchard MD Date/Time: 03/17/25 07:27 Surgeon: Xu Blanchard MD Pre Op Diagnosis: Personal history of colon polyps, unspecified Patient Data Age: 69 Gender: F Height: 1.6 m Weight: 54 kg Last Vital Signs Temp 36.6 C 03/17/25 06:57 Pulse 85 03/17/25 06:57 Resp 20 03/17/25 06:57 BP 133/76 03/17/25 06:57 Pulse Ox 98 03/17/25 06:57 O2 Del Method Room Air 03/17/25 06:57 Allergies Allergy/AdvReac Type Severity Reaction Status Date / Time No Known Allergies Allergy Verified 03/17/25 06:54 Home Medications ?Medication ?Instructions ?Recorded ?Confirmed ?Type cholecalciferol (vitamin D3) 125 125 mcg PO DAILY 07/15/22 03/17/25 History mcg (5,000 unit) capsule nitrofurantoin macrocrystal 25 mg 50 mg PO .PRN 07/15/22 03/03/25 History capsule triamcinolone acetonide 0.1 % 1 applic topical BID #80 grams 09/26/22 03/17/25 Rx topical cream alendronate 70 mg tablet 70 mg PO WEEKLY 08/28/24 03/03/25 History lorazepam 1 mg tablet 1.5 mg (1.5 x 1 mg) PO QHS PRN 03/02/25 03/17/25 Rx sleep #45 tabs Patient hx anesthesia problems: none Family hx anesthesia problems: none Results Review: All pre-operative results and documents have been reviewed as part of the pre-operative evaluation. [facility] Past Medical History Medical History Adenomatous colon polyp Colon cancer screening Surgical History Surgical History History of hysterectomy with bilateral oophorectomy (2003) Family History Family History Mother Family history of osteoporosis Social History Social History Smoking status: Never smoker Alcohol intake: current Drinks per week: 7 Substance use type: does not use Living arrangements: with family Spiritual care concerns: No Anes - Eval Final PreProcedure Day of Procedure 03/17/25 07:27 Patient weight: normal Heart: regular rate and rhythm Lungs: clear to auscultation Airway: Mallampati scale class II Neurological: alert and oriented Last oral intake: >/= 8 hours ASA classification: II Emergent: no Anesthetic plan: proceed Anesthesia type and monitoring: general GIVS and standard monitoring Results Review: All pre-operative results and documents have been reviewed as part of the pre-operative evaluation. Informed Consent: The patient's anesthetic plan and its attendant risks and benefits were discussed with the patient/family/POA. Questions were solicited and answers provided to the satisfaction of the patient/family/POA.
--- NOTE | 2025-03-17 07:51 | PM.HPGS ---
History of Present Illness History of Present Illness Consent: Risks, benefits, and alternatives have been discussed and questions answered. Patient agrees to proceed with procedure. Chief complaint: Personal history of colon polyps, unspecified Narrative: Betzaida Sheppard is a 69 year old female with several polyps removed 6 months ago Review of Systems Review of Systems: All systems reviewed & are unremarkable except as noted in HPI and below PMFSH Past Medical History Medical History Adenomatous colon polyp Colon cancer screening Surgical History Surgical History History of hysterectomy with bilateral oophorectomy (2003) Family History Family History Mother Family history of osteoporosis Social History Social History Smoking status: Never smoker Alcohol intake: current Drinks per week: 7 Substance use type: does not use Living arrangements: with family Spiritual care concerns: No Meds Home Medications and Allergies Home Medications ?Medication ?Instructions ?Recorded ?Confirmed ?Type cholecalciferol (vitamin D3) 125 125 mcg PO DAILY 07/15/22 03/17/25 History mcg (5,000 unit) capsule nitrofurantoin macrocrystal 25 mg 50 mg PO .PRN 07/15/22 03/03/25 History capsule triamcinolone acetonide 0.1 % 1 applic topical BID #80 grams 09/26/22 03/17/25 Rx topical cream alendronate 70 mg tablet 70 mg PO WEEKLY 08/28/24 03/03/25 History lorazepam 1 mg tablet 1.5 mg (1.5 x 1 mg) PO QHS PRN 03/02/25 03/17/25 Rx sleep #45 tabs Allergies Allergy/AdvReac Type Severity Reaction Status Date / Time No Known Allergies Allergy Verified 03/17/25 06:54 Vital Signs Vital Signs - 24 hr 03/17/25 06:57 Temperature 97.8 F Pulse Rate 85 Respiratory Rate 20 Blood Pressure 133/76 Pulse Oximetry 98 Oxygen Delivery Room Air Exam Const: General: comfortable and no acute distress HENMT: Face/Nose/Sinus: Normal nares present Eyes: General: appearance normal, both eyes and all related structures Neck: Neck: no JVD Resp: Auscultation: clear to auscultation bilaterally Cardio: Rate: regular rate Rhythm: regular rhythm GI: Inspection: non-distended GI Palp: Yes Soft to palpation Skin: General skin exam: normal color Extrem: General: normal to inspection Psych: Mental Status: mental status grossly normal Assessment and Plan Assessment and plan (1) Adenomatous colon polyp: Code(s): D12.6 - Benign neoplasm of colon, unspecified Status: Acute Assessment and Plan: colonoscopy
--- NOTE | 2025-03-17 08:23 | S_PTH ---
PATIENT: Betzaida Sheppard LOC: [facility]#:[id number] AGE/SX: 69/F ROOM: RE03/17/[address]: Xu Blanchard MD : [id number] BED: DIS: 03/17/2025 SPEC #: [id number] RECD: 03/17/25 10:40 STATUS: JAXSON EDWARDS #: [id number] FERNANDEZ: 03/17/25 08:[address]: Xu Blanchard DEPT: [facility] Surgical RECD BY: Aubrie Watts ENTERED: 03/17/25 10:41 SP TYPE: Surgical OTHR DR: Danis Paris MD Tissues: A - Colon Polypectomy B - Colon Polypectomy Procedures: Hematoxylin and Eosin Stain Gross and Microscopic Level 4
[2025-03-17 08:26] VITALS: BP 112/58; PULSE 64; RESP 17; O2SAT 100
[2025-03-17 08:36] VITALS: BP 119/65; PULSE 64; RESP 18; O2SAT 98
[2025-03-17 08:46] VITALS: BP 115/65; PULSE 62; RESP 13; O2SAT 100
== END 2025-03-17 09:03 | disposition home or self-care (01) ==
PROVIDERS: PCP Family Medicine Adolescent Medicine; Referring Provider Internal Medicine Gastroenterology; Visit Provider Internal Medicine Gastroenterology
PROC: 0DJD8ZZ Inspection of Lower Intestinal Tract, Via Natural or Artificial Opening Endoscopic (ICD-10-PCS; CPT 45378; principal; 2025-03-17 08:00)
DX: Z09 Encounter for follow-up examination after completed treatment for conditions other than malignant neoplasm (principal); D12.3 Benign neoplasm of transverse colon; K63.5 Polyp of colon; K64.8 Other hemorrhoids; Z79.83 Long term (current) use of bisphosphonates; Z98.890 Other specified postprocedural states
CPT/HCPCS: 45385; 88305; J2003; J2704; J7120